=== PATIENT | male | born 1985 | race Caucasian/White ===

== ENCOUNTER 2017-08-03 06:45 | Day surgery (SDC) | payer OTHER ==
[~2017-08-03] VITALS: Ht 177.8 cm; Wt 122.5 kg
[2017-08-03] MEDS ORDERED: ALL DAY ALLERGY10 M3 PO (07:05)
[2017-08-03] MEDS ORDERED: FLOMAX0.4 MG PO (07:05)
[2017-08-03] MEDS ORDERED: FLONASE SENSIM9.9 ML NAS (07:06)
[2017-08-03] MEDS ORDERED: RANITIDINE HCL300 M1 PO (07:07)
[2017-08-03] MEDS ORDERED: AVAPRO150 MG PO (07:07)
[2017-08-03] MEDS ORDERED: TRAZODONE HCL50 MG PO (07:07)
[2017-08-03] MEDS ORDERED: ULTRAM50 MG PO (07:08)
--- NOTE | 2017-08-03 10:09 | NUR ---
08/03/17 Aline9 Vivi Peguero 0983-PATIENT ARRIVED TO PACU ON 10L MASK O2 SAT 100% PATIENT NONAROUSABLE. ST HR 112. LEFT ARM IN SLING. 2 INCISION SITES TO LEFT SHOULDER CDI. ICE APPLIED. 1003-PATIENT AROUSING TO VERBAL STIMULI OPENING EYES ORIENTED TO SITUATION AND PACU. WEANED TO 6L MASK O2 SAT 100%
--- NOTE | 2017-08-03 10:47 | NUR ---
ICED WATER AND PUDDING GIVEN. OFFICERS @ BS. PT TAKING SIPS OF WATER AND TOLERATING THAT WELL.
[2017-08-03] MEDS ORDERED: NORCO 10-325 T1 EACH PO (11:12)
--- NOTE | 2017-08-03 11:59 | NUR ---
LE 1115: [facility] OFFICER COMES TO NURSE'S STATION TO REPORT THE PATIENT WAS UP TO THE BR AND WAS ABLE TO VOID. LE 1145: PATIENT REPORTS PAIN IS "MUCH BETTER". DC INSTRUCTIONS GIVEN AND PATIENT VERBALIZES UNDERSTANDING. CALL REPORT GIVEN TO RN, BEEN AND HER QUESTIONS ARE ANSWERED.
--- NOTE | 2017-08-03 12:48 | OR ---
[facility] [address], [place] [address] Signed DATE OF OPERATION: 08/03/2017 SURGEON: Nic Galvan MD PREOPERATIVE DIAGNOSIS: Rotator cuff tear, left shoulder. POSTOPERATIVE DIAGNOSIS: Rotator cuff tear, left shoulder. PROCEDURE: Shoulder arthroscopy with subacromial decompression, and Pablo. No full-thickness rotator cuff tear was identified. ANESTHESIA: General. SPECIMENS AND COMPLICATIONS: There were no specimens or complications. TOURNIQUET: Not used. BLOOD LOSS: Minimal. WHAT WAS DONE: The patient was taken to the operating room. After anesthesia was induced and airway secured, he was placed in a modified beach chair position and the left upper extremity was prepped and draped in a routine sterile fashion. The bony topography was outlined with a skin marking pen. The arthroscope was then inserted into the shoulder joint through the standard posterior portal and an anterior portal was created using a switching stick technique. Arthroscopy revealed a little fraying of the labrum. The glenoid surface was pristine as was the humeral head. Biceps tendon and biceps anchor were also unremarkable as was the subscapularis insertion of the supraspinatus and the infraspinatus insertions. Indeed, there was no full-thickness rotator cuff tear identified. There was a moderate synovitis. The VAPR was introduced and a limited synovectomy was performed. We then maneuvered the scope into the subacromial space and introduced the VAPR via an axillary lateral portal. There was a rather dense bursitis in the subacromial space. The vapor was used to do a subacromial bursectomy. He had a Electronically Signed By: NIC GALVAN MD 08/03/17 1248 PATIENT NAME: ARSEN ASCENCIO OPERATIVE REPORT DATE OF : 81 REPORT #: [id number] PHYSICIAN: NIC GALVAN MD PCP: EFRA SCHMITZ MD REPORT IS CONFIDENTIAL AND NOT TO BE RELEASED WITHOUT AUTHORIZATION [facility] [address], [place] [address] Signed rather significant anterior hook to the acromion and some significant osteophytes over the distal clavicle. We then used the auxiliary lateral portal to do a generous subacromial decompression. We then continued this dissection medially until we reached the AC joint. Once we reached the AC joint, another auxiliary anterior portal was created and two of the VAPR was introduced. Some soft tissue in the AC joint was removed. We then reintroduced the cinthia through the anterior portal and removed about 8 mm of the distal clavicle leaving a smooth finish surface. The subacromial space was then copiously irrigated and drained. The portals were closed and sterile dressings applied. He was placed in a sling, awakened, and taken to the recovery room where he arrived in stable condition. Counts were correct and antibiotic protocols were followed. Inspection of the rotator cuff on the bursal side did not reveal any bursal-sided tearing of the rotator cuff either. MD AIDA KlineB/CARSONL /[id number] Copies: ~ Electronically Signed By: NIC GALVAN MD 08/03/17 1248 PATIENT NAME: ARSEN ASCENCIO Griselda OPERATIVE REPORT DATE OF : 81 REPORT #: [id number] PHYSICIAN: NIC GALVAN MD PCP: EFRA SCHMITZ MD REPORT IS CONFIDENTIAL AND NOT TO BE RELEASED WITHOUT AUTHORIZATION
== END 2017-08-03 11:55 | disposition home or self-care (01) ==
LOC: OPS 06:45 → DS 06:45 → OPS 08:15
PROVIDERS: Orthopaedic Surgery
PROC: 0RBK4ZZ Excision of Left Shoulder Joint, Percutaneous Endoscopic Approach (ICD-10-PCS; 2017-08-03)
PROC: 0PBB4ZZ Excision of Left Clavicle, Percutaneous Endoscopic Approach (ICD-10-PCS; principal; 2017-08-03 08:15)
DX: M75.52 Bursitis of left shoulder (principal); M65.812 Other synovitis and tenosynovitis, left shoulder; I10 Essential (primary) hypertension; J45.909 Unspecified asthma, uncomplicated; Z87.891 Personal history of nicotine dependence; Z79.899 Other long term (current) drug therapy
CPT/HCPCS: 01630; 64415; 76942; J0330; J0690; J1100; J1170; J1885; J2250; J2270; J2405; J2704; J2795; J3010; J7120